=== PATIENT | male | born 1985 | race Caucasian/White ===

== ENCOUNTER 2016-07-30 16:27 | Emergency (ER) | payer BC, OTHER ==
[2016-07-30] MEDS ORDERED: SODIUM CHLORIDE 0.9% 1,000 ML IV STA (17:02)
--- NOTE | 2016-07-30 17:27 | ED ---
General Adult HPI - General Chief complaint: Overdose Stated complaint: overdose Time Seen by Provider: 07/30/16 16:50 Source: EMS Mode of arrival: EMS Limitations: no limitations - History of Present Illness Initial comments: The patient is a 31-year-old male who presents to the ED with a chief complaint of heroin overdose. The patient states that he was shooting up some drugs in his bathroom and the next thing that he knew he was on the floor surrounded by EMS. The patient states that he believes that he might have overdosed on heroin. He states that he is a regular user of heroin. He denies that he's ever overdosed the past. Patient denies any shortness of breath. Denies any chest pain. Patient states he is feeling comfortable overall. Patient states that he's been using heroin for a long period of time. Patient denies any history of fevers. Denies any history of having endocarditis or cellulitis. Patient is awake and alert while here in the ED. Noted to be tachycardic on quality assurance monitor. SpO2 noted to be within normal limits on room air. Patient denies any suicidal ideations. He states that he just enjoys recreational use of heroin. Patient denies any homicidal ideations. - Related Data Home Medications Medication Instructions Recorded Confirmed No Known Home Medications [No 07/30/16 07/30/16 Known Home Medications] Allergies Allergy/AdvReac Type Severity Reaction Status Date / Time No Known Allergies Allergy Verified 07/30/16 17:45 Review of Systems ROS Statement: Those systems with pertinent positive or pertinent negative responses have been documented in the HPI. ROS Other: All systems not noted in ROS Statement are negative. Constitutional: Denies: fever, chills, weakness Respiratory: Denies: cough, dyspnea, wheezes Cardiovascular: Denies: chest pain, palpitations Gastrointestinal: Denies: abdominal pain, nausea, vomiting, diarrhea Genitourinary: Denies: urgency, dysuria Musculoskeletal: Denies: back pain Skin: Denies: rash, lesions Neurological: Denies: headache, weakness Psychiatric: Denies: anxiety, depression, homicidal thoughts, suicidal thoughts Past Medical History Past Medical History: No Reported History History of Any Multi-Drug Resistant Organisms: None Reported Past Surgical History: Ear Surgery, Orthopedic Surgery, Tonsillectomy Additional Past Surgical History / Comment(s): Arthroscopic be right knee due to injury from skateboarding, tubes in ears as child Past Anesthesia/Blood Transfusion Reactions: No Reported Reaction Past Psychological History: Anxiety, Depression Smoking Status: Heavy tobacco smoker Past Alcohol Use History: None Reported Additional Past Alcohol Use History / Comment(s): Patient has a history of smoking 1 pack per day for 5-10 years. He denies any alcohol use. Patient states he has a problem with prescription drugs and started with [place] and now buys off the street. He does use marijuana in the last time was a few days ago. Patient also uses heroin and tried to overdose with heroin. Patient works as a plant machinist. He has one son that is 2 years old and healthy. He was living with his fiance prior to their split. Past Drug Use History: Heroin, Marijuana, Opiates - Past Family History Father Additional Family Medical History / Comment(s): Father is 55 years of age and healthy. Mother Additional Family Medical History / Comment(s): Mother is 52 years of age and healthy. He does not have any brothers or sisters. General Exam Limitations: no limitations General appearance: alert, in no apparent distress Head exam: Present: atraumatic, normocephalic Eye exam: Present: normal appearance, PERRL, EOMI, other (pupils are 3mm, equal and reactive bilaterally) ENT exam: Present: normal exam, mucous membranes dry Neck exam: Present: normal inspection Respiratory exam: Present: normal lung sounds bilaterally. Absent: respiratory distress, wheezes, rales, rhonchi, stridor Cardiovascular Exam: Present: normal rhythm, tachycardia GI/Abdominal exam: Present: soft. Absent: distended, tenderness, guarding, rebound, rigid Extremities exam: Present: normal inspection, full ROM Back exam: Present: normal inspection, full ROM. Absent: tenderness Neurological exam: Present: alert, oriented X3 Psychiatric exam: Present: normal affect, normal mood. Absent: homicidal ideation, suicidal ideation Skin exam: Present: warm, dry, intact, other (Patient noted to have multiple georges surrounding areas were he's injected on his bilateral forearms.) Course Vital Signs 07/30/16 07/30/16 07/30/16 16:29 16:52 18:56 Temperature 96.7 F L 98 F Pulse Rate 124 H 108 H 90 Respiratory 20 14 16 Rate Blood Pressure 138/72 108/62 O2 Sat by Pulse 97 96 97 Oximetry EKG Findings - EKG Comments: EKG Findings:: EKG demonstrates sinus tachycardia with a rate of 109. There is no evidence of S1Q3T3. There are no concerning ST-T changes. Medical Decision Making - Medical Decision Making The patient is a 31-year-old male who presents to ED with a chief complaint of heroin overdose. Patient is a regular user of heroin. Patient states that he uses drugs every day. Patient states that he was not trying to harm himself, simply get high. Patient denies any suicidal or homicidal ideations. Patient awake and alert here in the ED. He is noted to be tachycardic. Check EKG. Keep patient on quality assurance monitor. Bolus patient with IV fluids. Observe patient for a period of approximately one hour to ensure that he stays awake and alert. 6:23 PM Patient remains awake and alert. Vital signs all within normal limits. Tachycardia has resolved. Counseled the patient that he would benefit from abstaining from future heroin use. Counseled patient that he can seek assistance to help with this problem in the future. I have answered all the patient's questions to his satisfaction. Patient states that he has a ride coming to pick him up from the ED. Encouraged the patient to return to the ED should he have any suicidal or homicidal ideations. Encouraged patient also return immediately should he have any chest pain, shortness of breath, or fever. I spoke extensively with the patient regarding fact that continued heroin dose might lead to future overdoses and that this could cost him his life. He states understanding. Disposition Clinical Impression: Heroin overdose Disposition: HOME SELF-CARE Condition: Good Instructions: Narcotic Abuse (ED) Additional Instructions: It is in your best interest to not use heroin in the future. This could possibly lead to more overdose situations. Referrals: None,Stated [Primary Care Provider] - 1-2 days Time of Disposition: 18:23
[2016-07-30 18:57] VITALS: BP 108/62; PULSE 90; RESP 16; TEMP 98
== END 2016-07-30 18:57 | disposition home or self-care (01) ==
LOC: EC 16:27
DX: T40.1X1A Poisoning by heroin, accidental (unintentional), initial encounter (principal); F17.200 Nicotine dependence, unspecified, uncomplicated; F12.90 Cannabis use, unspecified, uncomplicated; R00.0 Tachycardia, unspecified
CPT/HCPCS: 93005; 99284